=== PATIENT | male | born 1975 | race Hispanic/Latino ===

== ENCOUNTER 2019-08-29 11:13 | Emergency (ER) | payer SELFPAY ==
--- NOTE | 2019-08-29 11:28 | Emergency Department Report ---
Blank Doc - Documentation Documentation: 44-year-old male that presents with left shoulder pain with radiation to hand. Stated has chest pains only when moving the shoulder. Denies any SOB. Patient denies any chest pain currently. This initial assessment/diagnostic orders/clinical plan/treatment(s) is/are subject to change based on patient's health status, clinical progression and re- assessment by fellow clinical providers in the ED. Further treatment and workup at subsequent clinical providers discretion. Patient/guardians urged not to elope from the ED as their condition may be serious if not clinically assessed and managed. Initial orders include: 1- Patient sent to [facility] for further evaluation and treatment 2- xrays 3- EKG-normal sinus rhythm
--- NOTE | 2019-08-29 12:27 | XRay Report ---
LEFT SHOULDER HISTORY: Left shoulder pain. COMPARISON: None. TECHNIQUE: 3 views of the left shoulder were obtained. FINDINGS Bones: No fracture or dislocation. Joint spaces: Maintained. Soft tissues: No significant abnormality. Additional findings: None. IMPRESSION: 1. No significant abnormality. Signer Name: Juancarlos Massey MD Signed: 08/29/2019 12:22 PM Workstation Name: [id number]
[2019-08-29] MEDS ORDERED: CYCLOBENZAPRINE 10 MG TAB PO ONE (13:08)
[2019-08-29] MEDS ORDERED: KETOROLAC 60 MG/2 ML INJ IM ONE (13:08)
[2019-08-29] MEDS ORDERED: dexAMETHasone 20 MG/5 ML VIAL IM ONE (13:08)
--- NOTE | 2019-08-29 13:58 | Cat Scan Report ---
CT cervical spine wo con INDICATION / CLINICAL INFORMATION: 44 years Male; neck pain, left shoulder pain, tingling left arm. TECHNIQUE: Axial CT images of the cervical spine were obtained. Sagittal and coronal reformatted images were pr oduced. All CT scans at this location are performed using CT dose reduction for ALARA by means of aut omated exposure control. COMPARISON: None available. FINDINGS: POST-SURGICAL CHANGES: None. ALIGNMENT: This mild reversal of the cervical lordosis along with slight curvature of the cervical sp ine, convex toward the left at. VERTEBRAE: There are multilevel degenerative endplate changes and osteophytic formation. However, th ere is no clear CT evidence of acute fracture involving the cervical spine. INTRAVERTEBRAL DISCS: The left facet and uncovertebral joint hypertrophy at C3-4 result in mild to mo derate left foraminal narrowing with encroachment on the left lateral recess. The spondylosis at C4-5 effaces the ventral subarachnoid space The spondylosis at C5-6 appears to mildly flatten the ventral cord. There is moderate right and mild left neural foraminal narrowing. The spondylosis at C6-7 is greater on the left with left-sided osteo phyte which effaces the left lateral recess at. There is moderate left neural foraminal narrowing. PARASPINAL SOFT TISSUES: No prevertebral soft tissue fluid collections are identified. ADDITIONAL FINDINGS: There is symmetric smooth the widening of the internal auditory canals which ok ears to be developmental. IMPRESSION: 1. There is no CT evidence of acute fracture involving the cervical spine. 2. There are multilevel degenerative changes as detailed above. Signer Name: Guanakito Arzate MD Signed: 08/29/2019 1:54 PM Workstation Name: [id number]
--- NOTE | 2019-08-29 14:15 | Emergency Department Report ---
ED General Adult HPI - General Chief complaint: Chest Pain Stated complaint: CHEST PAIN Time Seen by Provider: 08/29/19 11:26 Source: patient Mode of arrival: Ambulatory Limitations: No Limitations - History of Present Illness Initial comments: Patient is a 44-year-old male presents emergency room with complaints of left- sided neck pain and left-sided shoulder pain that began a couple days ago. He has associated tingling sensation in the left arm. Patient states that he has previously had a "pinched nerve" in the neck before. Patient denies any c omplete numbness or weakness. PMHx HTN. no allergies to meds. states he did not take his BP medication this morning. Severity scale (0 -10): 10 - Related Data Previous Rx's Medication Instructions Recorded Last Taken Type Codeine Phosphate/Guaifenesin 5 ml PO QHS PRN #60 liquid 07/24/14 Unknown Rx [Codeine-Guaifen 10-100 mg/5 ml] predniSONE [Prednisone] 10 mg PO DAILY #20 tablet 07/24/14 Unknown Rx Cyclobenzaprine [Flexeril] 10 mg PO QHS PRN #14 tablet 08/29/19 Unknown Rx Naproxen [EC-Naprosyn] 500 mg PO BID PRN #20 tablet.dr 08/29/19 Unknown Rx Prednisone [predniSONE 10 mg 10 mg PO .TAPER #1 tab.ds.pk 08/29/19 Unknown Rx (6-Day Pack, 21 Tabs)] Allergies Allergy/AdvReac Type Severity Reaction Status Date / Time No Known Allergies Allergy Unverified 07/24/14 19:46 ED Review of Systems ROS: Stated complaint: CHEST PAIN Other details as noted in HPI Comment: All other systems reviewed and negative ED Past Medical Hx - Past Medical History Previous Medical History?: No - Surgical History Past Surgical History?: No - Social History Smoking Status: Never Smoker Substance Use Type: None - Medications Home Medications: Home Medications Medication Instructions Recorded Confirmed Last Taken Type Codeine Phosphate/Guaifenesin 5 ml PO QHS PRN #60 liquid 07/24/14 Unknown Rx [Codeine-Guaifen 10-100 mg/5 ml] predniSONE [Prednisone] 10 mg PO DAILY #20 tablet 07/24/14 Unknown Rx Cyclobenzaprine [Flexeril] 10 mg PO QHS PRN #14 tablet 08/29/19 Unknown Rx Naproxen [EC-Naprosyn] 500 mg PO BID PRN #20 tablet. 08/29/19 Unknown Rx Prednisone [predniSONE 10 mg 10 mg PO .TAPER #1 tab.ds.pk 08/29/19 Unknown Rx (6-Day Pack, 21 Tabs)] ED Physical Exam - General Limitations: No Limitations General appearance: alert, other (appears to be in mild discomfort) - Head Head exam: Present: atraumatic, normocephalic - Eye Eye exam: Present: normal appearance - ENT ENT exam: Present: mucous membranes moist - Neck Neck exam: Present: normal inspection, tenderness (left sided paraspinal muscular TTP, no mildine C-spine tenderness, no step offs, no deformities), full ROM - Respiratory Respiratory exam: Present: normal lung sounds bilaterally. Absent: respiratory distress, wheezes, rales, rhonchi, stridor, chest wall tenderness, accessory muscle use, decreased breath sounds, prolonged expiratory - Cardiovascular Cardiovascular Exam: Present: regular rate, normal rhythm, normal heart sounds. Absent: systolic murmur, diastolic murmur, rubs, gallop - Extremities Exam Extremities exam: Present: other (left sided trapezius TTP, no bony shoulder TTP, no AC joint tenderness, no deformity, no sulcus sign, clavicles are equal, FROM of the LUE, neurovascularly intact, sensation intact) - Neurological Exam Neurological exam: Present: alert, oriented X3, CN II-XII intact, normal gait. Absent: motor sensory deficit - Psychiatric Psychiatric exam: Present: normal affect, normal mood - Skin Skin exam: Present: warm, dry, intact ED Course Vital Signs 08/29/19 08/29/19 08/29/19 11:15 11:27 14:54 Temperature 98.2 F 98 F 97.7 F Pulse Rate 86 92 H 81 Respiratory 16 20 20 Rate Blood Pressure 144/99 166/116 Blood Pressure 155/108 [Right] O2 Sat by Pulse 94 98 99 Oximetry ED Medical Decision Making - Lab Data Vital Signs 08/29/19 08/29/19 08/29/19 11:15 11:27 14:54 Temperature 98.2 F 98 F 97.7 F Pulse Rate 86 92 H 81 Respiratory 16 20 20 Rate Blood Pressure 144/99 166/116 Blood Pressure 155/108 [Right] O2 Sat by Pulse 94 98 99 Oximetry - EKG Data EKG shows normal: sinus rhythm, axis, intervals, QRS complexes, ST-T waves Rate: normal - Radiology Data Radiology results: report reviewed LEFT SHOULDER HISTORY: Left shoulder pain. COMPARISON: None. TECHNIQUE: 3 views of the left shoulder were obtained. FINDINGS Bones: No fracture or dislocation. Joint spaces: Maintained. Soft tissues: No significant abnormality. Additional findings: None. IMPRESSION: 1. No significant abnormality. Signer Name: Juancarlos Villegas MD Signed: 08/29/2019 12:22 PM Workstation Name: [id number] Transcribed By: REF Dictated By: JUANCARLOS VILLEGAS MD Electronically Authenticated By: JUANCARLOS VILLEGAS MD Signed Date/Time: 08/29/19 122 DD/ 1221 TD/TT: CT cervical spine wo con INDICATION / CLINICAL INFORMATION: 44 years Male; neck pain, left shoulder pain, tingling left arm. TECHNIQUE: Axial CT images of the cervical spine were obtained. Sagittal and coronal reformatted images were produced. All CT scans at this location are performed using CT dose reduction for ALARA by means of automated exposure control. COMPARISON: None available. FINDINGS: POST-SURGICAL CHANGES: None. ALIGNMENT: This mild reversal of the cervical lordosis along with slight curvature of the cervical spine, convex toward the left at. VERTEBRAE: There are multilevel degenerative endplate changes and osteophytic formation. However, there is no clear CT evidence of acute fracture involving the cervical spine. INTRAVERTEBRAL DISCS: The left facet and uncovertebral joint hypertrophy at C3-4 result in mild to moderate left foraminal narrowing with encroachment on the left lateral recess. The spondylosis at C4-5 effaces the ventral subarachnoid space The spondylosis at C5-6 appears to mildly flatten the ventral cord. There is moderate right and mild left neural foraminal narrowing. The spondylosis at C6-7 is greater on the left with left-sided osteophyte which effaces the left lateral recess at. There is moderate left neural foraminal narrowing. PARASPINAL SOFT TISSUES: No prevertebral soft tissue fluid collections are identified. ADDITIONAL FINDINGS: There is symmetric smooth the widening of the internal auditory canals which appears to be developmental. IMPRESSION: 1. There is no CT evidence of acute fracture involving the cervical spine. 2. There are multilevel degenerative changes as detailed above. Signer Name: Guanakito Arzate MD Signed: 08/29/2019 1:54 PM Workstation Name: [id number] Transcribed By: MR Dictated By: Guanakito Arzate MD Electronically Authenticated By: Guanakito Arzate MD Signed Date/Time: 08/29/19 1354 DD/ 1347 TD/TT: - Medical Decision Making Patient is a 44-year-old male presents emergency room with complaints of left-sided neck pain and left-sided shoulder pain that began a couple days ago. He has associated tingling sensation in the left arm. Patient states that he has previously had a "pinched nerve" in the neck before. Patient denies any complete numbness or weakness. PMHx HTN. no allergies to meds. states he did not take his BP medication this morning, advised pt to please take his BP med as prescribed by his PCP and to follow up with his PCP. on exam: left sided paraspinal muscular TTP, no mildine C-spine tenderness, no step offs, no deformities, left sided trapezius TTP, no bony shoulder TTP, no AC joint tenderness, no deformity, no sulcus sign, clavicles are equal, FROM of the LUE, neurovascularly intact, sensation intact, no neuro deficits. XR shoulder: 1. No significant abnormality. CT cervical spine: 1. There is no CT evidence of acute fracture involving the cervical spine.2. There are multilevel degenerative changes as detailed above. Patient given Flexeril, Toradol injection, steroid injection as he did not drive to the emergency department. His symptoms significantly improved and he was resting comfortably on exam bed. symptoms and examination consistent with a cervical radiculopathy. Patient given prescription for naproxen, Flexeril, prednisone. Advised patient Please take medication as prescribed. Do not drive or operate machinery while taking muscle relaxer. May use ice pack, heating pad, rest, epsom salt bath. Follow-up with an orthopedic doctor in the next 2-3 days. Return to the emergency room for any new or worsening symptoms. - Differential Diagnosis DDD, cervical radiulopathy, strain, sprain, spondylolysis, spondylolisthesi Critical care attestation.: If time is entered above; I have spent that time in minutes in the direct care of this critically ill patient, excluding procedure time. ED Disposition Clinical Impression: Cervical radiculopathy, Spondylosis DDD (degenerative disc disease) Qualifiers: Spinal region: mid-cervical Mid-cervical spinal level: C5-C6 Qualified Code(s): M50.322 - Other cervical disc degeneration at C5-C6 level Disposition: DC-01 TO HOME OR SELFCARE Is pt being admited?: No Does the pt Need Aspirin: No Condition: Stable Instructions: Cervical Radiculopathy (ED), Degenerative Disc Disease (ED) Additional Instructions: Please take medication as prescribed. Do not drive or operate machinery while taking muscle relaxer. May use ice pack, heating pad, rest, epsom salt bath. Follow-up with an orthopedic doctor in the next 2-3 days. Return to the emergency room for any new or worsening symptoms. Prescriptions: Cyclobenzaprine [Flexeril] 10 mg PO QHS PRN #14 tablet PRN Reason: Muscle Spasm Naproxen [EC-Naprosyn] 500 mg PO BID PRN #20 tablet.dr PRN Reason: pain Prednisone [predniSONE 10 mg (6-Day Pack, 21 Tabs)] 10 mg PO .TAPER #1 tab.ds.pk Referrals: [facility] [Provider Group] - 2-3 Days NELSON MYERS MD [Staff Physician] - 2-3 Days Forms: Work/School Release Form(ED) Time of Disposition: 14:15 Print Language: TAMAZIGHT
[2019-08-29 14:55] VITALS: BP 155/108
== END 2019-08-29 15:17 | disposition home or self-care (01) ==
LOC: ED 11:13
DX: M54.12 Radiculopathy, cervical region (principal); M50.31 Other cervical disc degeneration, high cervical region; M47.9 Spondylosis, unspecified; M25.512 Pain in left shoulder
CPT/HCPCS: 72125; 73030; 93005; 93010; 96372; 99284; J1100; J1885

== ENCOUNTER 2020-07-29 05:31 | Emergency (ER) | payer BC ==
[2020-07-29 06:16] LABS: Basophils # (Auto) 0.1 K/mm3 (0.0-0.1); Basophils % (Auto) 1.1 % (0.0-1.8); Eosinophils # (Auto) 0.2 K/mm3 (0.0-0.4); Eosinophils % (Auto) 3.5 % (0.0-4.3); Hematocrit 45.9 % (35.5-45.6); Hemoglobin 15.2 gm/dl (11.8-15.2); Lymphocytes # (Auto) 1.2 K/mm3 (1.2-5.4); Lymphocytes % (Auto) 22.4 % (13.4-35.0); Mean Corpuscular HGB Conc 33 % (32-34); Mean Corpuscular Volume 86 fl (84-94); Monocytes # (Auto) 0.5 K/mm3 (0.0-0.8); Monocytes % (Auto) 8.6 % (0.0-7.3); Platelet Count 355 K/mm3 (140-440); Red Blood Count 5.31 M/mm3 (3.65-5.03); Red Cell Distribution Width 14.3 % (13.2-15.2)
--- NOTE | 2020-07-29 06:32 | XRay Report ---
CHEST 1 VIEW INDICATION / CLINICAL INFORMATION: Chest Pain. COMPARISON: None FINDINGS: SUPPORT DEVICES: None. HEART / MEDIASTINUM: No significant abnormality. LUNGS / PLEURA: No significant pulmonary or pleural abnormality. No pneumothorax. ADDITIONAL FINDINGS: No significant additional findings. IMPRESSION: 1. No acute findings. Signer Name: Rosalba Parker MD Signed: 07/29/2020 6:27 AM Workstation Name: [id number]
[2020-07-29 06:38] LABS: BUN/Creatinine Ratio 17; Blood Urea Nitrogen 15 mg/dL (9-20); Calcium 9.6 mg/dL (8.4-10.2); Hemolysis Index 30
--- NOTE | 2020-07-29 08:51 | Emergency Department Report ---
ED Chest Pain HPI - General Chief Complaint: Chest Pain Stated Complaint: CHEST PAIN/TROUBLE SWALLOWING Time Seen by Provider: 07/29/20 08:50 Source: patient Mode of arrival: Ambulatory Limitations: No Limitations - History of Present Illness Initial Comments: 45-year-old male presents to the emergency room stating that this morning he had trouble swallowing in complaining of epigastric pain. Patient states he had not changed his diet has not had any alcohol beverage in a month. He admits to some nausea denies any fever no chills. Does have a history of GERD but has not needed to take his medications. Patient states that this time he has no discomfort he has been able to drink liquids but has not tried solids. Patient denies any fever chills. Review of patient's chart shows that he has a history of hypertension. MD Complaint: chest pain -: This morning Onset: after eating Pain Location: epigastric Pain Radiation: none Severity scale (0 -10): 0 Quality: other (Discomfort) Consistency: intermittent Improves With: nothing Worsens With: eating re: nausea. denies: vomting, diaphoresis, dyspnea, sense of impending doom Other Symptoms: denies: cough, fever, syncope, rash, acid taste in mouth, leg swelling, palpitations Treatments Prior to Arrival: none - Related Data On Oral Contraceptives: No Previous Rx's Medication Instructions Recorded Last Taken Type Codeine Phosphate/Guaifenesin 5 ml PO QHS PRN #60 liquid 07/24/14 Unknown Rx [Codeine-Guaifen 10-100 mg/5 ml] predniSONE [Prednisone] 10 mg PO DAILY #20 tablet 07/24/14 Unknown Rx Cyclobenzaprine [Flexeril] 10 mg PO QHS PRN #14 tablet 08/29/19 Unknown Rx Naproxen [EC-Naprosyn] 500 mg PO BID PRN #20 tablet. 08/29/19 Unknown Rx Prednisone [predniSONE 10 mg 10 mg PO .TAPER #1 tab.ds.pk 08/29/19 Unknown Rx (6-Day Pack, 21 Tabs)] Famotidine [Pepcid] 20 mg PO BID #14 tablet 07/29/20 Unknown Rx Sucralfate [Carafate] 1 gm PO ACHS #15 tablet 07/29/20 Unknown Rx Allergies Allergy/AdvReac Type Severity Reaction Status Date / Time No Known Allergies Allergy Unverified 07/24/14 19:46 Heart Score - HEART Score History: Slightly suspicious EKG: Normal Age: 45-65 Risk factors: No known risk factors Troponin: 1-3x normal limit HEART Score: 2 ED Review of Systems ROS: Stated complaint: CHEST PAIN/TROUBLE SWALLOWING Other details as noted in HPI Comment: All other systems reviewed and negative ED Past Medical Hx - Past Medical History Hx Hypertension: Yes - Surgical History Past Surgical History?: No - Social History Smoking Status: Current Every Day Smoker Substance Use Type: None - Medications Home Medications: Home Medications Medication Instructions Recorded Confirmed Last Taken Type Codeine Phosphate/Guaifenesin 5 ml PO QHS PRN #60 liquid 07/24/14 Unknown Rx [Codeine-Guaifen 10-100 mg/5 ml] predniSONE [Prednisone] 10 mg PO DAILY #20 tablet 07/24/14 Unknown Rx Cyclobenzaprine [Flexeril] 10 mg PO QHS PRN #14 tablet 08/29/19 Unknown Rx Naproxen [EC-Naprosyn] 500 mg PO BID PRN #20 tablet.dr 08/29/19 Unknown Rx Prednisone [predniSONE 10 mg 10 mg PO .TAPER #1 tab.ds.pk 08/29/19 Unknown Rx (6-Day Pack, 21 Tabs)] Famotidine [Pepcid] 20 mg PO BID #14 tablet 07/29/20 Unknown Rx Sucralfate [Carafate] 1 gm PO ACHS #15 tablet 07/29/20 Unknown Rx ED Physical Exam - General Limitations: No Limitations General appearance: alert, in no apparent distress - Head Head exam: Present: atraumatic, normocephalic - Eye Eye exam: Present: normal appearance - ENT ENT exam: Present: mucous membranes moist - Neck Neck exam: Present: normal inspection - Respiratory Respiratory exam: Present: normal lung sounds bilaterally. Absent: respiratory distress - Cardiovascular Cardiovascular Exam: Present: regular rate, normal rhythm. Absent: systolic murmur, diastolic murmur, rubs, gallop - GI/Abdominal GI/Abdominal exam: Present: soft, normal bowel sounds - Rectal Rectal exam: Present: deferred - Extremities Exam Extremities exam: Present: normal inspection - Back Exam Back exam: Present: normal inspection - Neurological Exam Neurological exam: Present: alert, oriented X3 - Psychiatric Psychiatric exam: Present: normal affect, normal mood - Skin Skin exam: Present: warm, dry, intact, normal color. Absent: rash ED Course Vital Signs 07/29/20 06:03 Temperature 98.1 F Pulse Rate 90 Respiratory 18 Rate Blood Pressure 133/90 O2 Sat by Pulse 97 Oximetry GOMEZ score - Gomez Score Age > 65: (0) No Aspirin use within the Past 7 Days: (0) No 3 or more CAD Risk Factors: (0) No 2 or more Angina events in past 24 hrs: (0) No Known CAD with more than 50% Stenosis: (0) No Elevated Cardiac Markers: (0) No ST Deviation Greater than 0.5mm: (0) No GOMEZ Score: 0 ED Medical Decision Making - Lab Data Result diagrams: 07/29/20 05:54 07/29/20 05:54 - EKG Data EKG shows normal: sinus rhythm, axis, intervals, QRS complexes, ST-T waves Rate: normal - Radiology Data Radiology results: report reviewed Referring Physician:ED DOCPatient Name:NESTOR JIMENEZPatient ID:[id number] of :[id number]:MaleAccession:[id number] Date:[id number] Status:Finalized Findings [facility] [address] [place] [address] XRay Report Signed Patient: NESTOR JIMENEZ MR#: [id number] : 1975 Acct:[id number] Age/Sex: 45 / M ADM Date: 07/29/20 Loc: ED Attending Dr: Ordering Physician: NATHANIEL NGUYEN MD Date of Service: 07/29/20 Procedure(s): XR chest 1V ap Accession Number(s): [id number] cc: ED MD PATRICK Fluoro Time In Minutes: CHEST 1 VIEW INDICATION / CLINICAL INFORMATION: Chest Pain. COMPARISON: None FINDINGS: SUPPORT DEVICES: None. HEART / MEDIASTINUM: No significant abnormality. LUNGS / PLEURA: No significant pulmonary or pleural abnormality. No pneumothorax. ADDITIONAL FINDINGS: No significant additional findings. IMPRESSION: 1. No acute findings. Signer Name: Rosalba Parker MD Signed: 07/29/2020 6:27 AM Workstation Name: [id number] Transcribed By: HRC Dictated By: Rosalba Parker MD Electronically Authenticated By: Rosalba Parker MD Signed Date/Time: 07/29/20626 DD/ 5 TD/TT: - Medical Decision Making 45-year-old male presents to the emergency room stating that this morning he had trouble swallowing in complaining of epigastric pain. Patient states he had not changed his diet has not had any alcohol beverage in a month. He admits to some nausea denies any fever no chills. Does have a history of GERD but has not needed to take his medications. Patient states that this time he has no discomfort he has been able to drink liquids but has not tried solids. Patient denies any fever chills. Review of patient's chart shows that he has a history of hypertension. Cardiac protocol was initiated in triage. Labs are stable on actionable. Chest x-ray is within normal limits EKG is normal patient has no risk factors for cardiac event. Patient was given Pepcid 20 mg p.o. patient will be discharged home to follow-up with a assistant refinery operator as well as a facepiece line supervisor. Critical care attestation.: If time is entered above; I have spent that time in minutes in the direct care of this critically ill patient, excluding procedure time. ED Disposition Clinical Impression: Atypical chest pain, Epigastric pain Disposition: - TO HOME OR SELFCARE Is pt being admited?: No Does the pt Need Aspirin: No Condition: Stable Instructions: Chest Pain (ED) Additional Instructions: X-rays are negative EKG is within normal limits labs are all stable. I would like for you to take the Pepcid and the Carafate for a week. Follow-up with cardiology as well as a assistant refinery operator I have listed their information below for your convenience. Prescriptions: Sucralfate [Carafate] 1 gm PO ACHS #15 tablet Famotidine [Pepcid] 20 mg PO BID #14 tablet Referrals: PRIMARY [facility] [Primary Care Provider] - 3-5 Days JESUS SANDOVAL MD [Staff Physician] - 3-5 Days [facility] [Provider Group] - 3-5 Days Forms: Work/School Release Form(ED)
[2020-07-29] MEDS ORDERED: ONDANSETRON 4 MG ODT TAB PO ONE (09:19)
[2020-07-29] MEDS ORDERED: FAMOTIDINE 20 MG TAB PO ONE (09:19)
[2020-07-29 11:10] VITALS: BP 151/89
== END 2020-07-29 11:10 | disposition home or self-care (01) ==
LOC: ED 05:31
DX: R07.89 Other chest pain (principal); R10.13 Epigastric pain; R11.0 Nausea; I10 Essential (primary) hypertension; F17.200 Nicotine dependence, unspecified, uncomplicated; Z79.899 Other long term (current) drug therapy
CPT/HCPCS: 36415; 71045; 80048; 84484; 85025; 93005; Q0162

== ENCOUNTER 2021-06-28 10:49 | Emergency (ER) | payer BC ==
[2021-06-28] MEDS ORDERED: MORPHINE 4 MG/1 ML INJ IV ONE ×2 (11:31→16:36)
[2021-06-28] MEDS ORDERED: PANTOPRAZOLE 40 MG INJ IV ONE (11:31)
[2021-06-28] MEDS ORDERED: LACTATED RINGERS 1,000 ML IV ONE (11:31)
[2021-06-28] MEDS ORDERED: ONDANSETRON 4 MG/2 ML INJ IV ONE ×2 (11:31→16:36)
--- NOTE | 2021-06-28 11:38 | Emergency Department Report ---
ED General Adult HPI - General Chief complaint: Abdominal Pain Stated complaint: Ate a hot dog, and now my stomach is bothering me PUI?: No Time Seen by Provider: 06/28/21 11:10 Source: patient, RN notes reviewed, old records reviewed Mode of arrival: Ambulatory Limitations: No Limitations - History of Present Illness Initial comments: The patient is a 46-year-old gentleman. The patient presents to the ER today with a complaint of epigastric and upper abdominal pain, associate with nausea and vomiting, after eating a hot dog. The patient states that prior to eating the hot dog, he was in his usual state of health, and had no issues or complaints. After eating hot dog, he states that he vomited, and some fluid and blood came out of his nose, which is now resolved. The patient denies travel, surgery, immobilization, DVT and pulmonary embolism risk factors. He denies diaphoresis, leg pain, leg swelling, personal/family history of DVT He still complains of epigastric and upper abdominal pain. The pain is sharp a nd throbbing. It increases with palpation. It decreases with rest and position. His symptoms are improved in the emergency room, with morphine and Zofran -: Sudden Location: abdomen Radiation: non-radiation Severity scale (0 -10): 7 Consistency: constant Improves with: medication Worsens with: eating - Related Data Previous Rx's Medication Instructions Recorded Last Taken Type Codeine Phosphate/Guaifenesin 5 ml PO QHS PRN #60 liquid 07/24/14 Unknown Rx [Codeine-Guaifen 10-100 mg/5 ml] predniSONE [Prednisone] 10 mg PO DAILY #20 tablet 07/24/14 Unknown Rx Cyclobenzaprine [Flexeril] 10 mg PO QHS PRN #14 tablet 08/29/19 Unknown Rx Naproxen [EC-Naprosyn] 500 mg PO BID PRN #20 tablet.dr 08/29/19 Unknown Rx Prednisone [predniSONE 10 mg 10 mg PO .TAPER #1 tab.ds.pk 08/29/19 Unknown Rx (6-Day Pack, 21 Tabs)] Famotidine [Pepcid] 20 mg PO BID #14 tablet 07/29/20 Unknown Rx Sucralfate [Carafate] 1 gm PO ACHS #15 tablet 07/29/20 Unknown Rx Allergies Allergy/AdvReac Type Severity Reaction Status Date / Time No Known Allergies Allergy Unverified 07/24/14 19:46 ED Review of Systems ROS: Stated complaint: NOSE BLEED,CHEST PAIN Other details as noted in HPI Constitutional: denies: fever Eyes: denies: eye discharge ENT: epistaxis (Nasal bleeding, now resolved) Respiratory: denies: cough Cardiovascular: chest pain Gastrointestinal: abdominal pain, nausea, vomiting. denies: hematemesis, melena, hematochezia Genitourinary: denies: dysuria Musculoskeletal: denies: back pain Neurological: denies: weakness Psychiatric: anxiety Hematological/Lymphatic: denies: easy bleeding ED Past Medical Hx - Past Medical History Previous Medical History?: Yes Hx Hypertension: Yes - Surgical History Past Surgical History?: Yes Additional Surgical History: vocal chords as child - Social History Smoking Status: Current Every Day Smoker Substance Use Type: None - Medications Home Medications: Home Medications Medication Instructions Recorded Confirmed Last Taken Type Codeine Phosphate/Guaifenesin 5 ml PO QHS PRN #60 liquid 07/24/14 Unknown Rx [Codeine-Guaifen 10-100 mg/5 ml] predniSONE [Prednisone] 10 mg PO DAILY #20 tablet 07/24/14 Unknown Rx Cyclobenzaprine [Flexeril] 10 mg PO QHS PRN #14 tablet 08/29/19 Unknown Rx Naproxen [EC-Naprosyn] 500 mg PO BID PRN #20 tablet.dr 08/29/19 Unknown Rx Prednisone [predniSONE 10 mg 10 mg PO .TAPER #1 tab.ds.pk 08/29/19 Unknown Rx (6-Day Pack, 21 Tabs)] Famotidine [Pepcid] 20 mg PO BID #14 tablet 07/29/20 Unknown Rx Sucralfate [Carafate] 1 gm PO ACHS #15 tablet 07/29/20 Unknown Rx ED Physical Exam - General Limitations: No Limitations General appearance: alert, anxious, in distress - Head Head exam: Present: atraumatic, normocephalic - Eye Eye exam: Present: normal appearance, EOMI. Absent: nystagmus - ENT ENT exam: Present: normal exam, normal orophraynx, mucous membranes moist, normal external ear exam - Neck Neck exam: Present: normal inspection, full ROM. Absent: tenderness, meningismus - Respiratory Respiratory exam: Present: normal lung sounds bilaterally. Absent: respiratory distress, wheezes, rales, rhonchi, stridor, decreased breath sounds - Cardiovascular Cardiovascular Exam: Present: normal rhythm, tachycardia, normal heart sounds. Absent: bradycardia, irregular rhythm, systolic murmur, diastolic murmur, rubs, gallop - GI/Abdominal GI/Abdominal exam: Present: soft, tenderness, other (There is right upper quadrant tenderness. There is a negative Simmons sign. There is epigastric tenderness). Absent: distended, guarding, rebound, rigid, pulsatile mass - Rectal Rectal exam: Present: deferred - Extremities Exam Extremities exam: Present: normal inspection, full ROM, other (2+ pulses noted in the bilateral upper and lower extremities. There is no palpable cord. negative Homans sign. Muscular compartments are soft. The pelvis is stable.). Absent: pedal edema, calf tenderness - Back Exam Back exam: Present: normal inspection, full ROM. Absent: tenderness, CVA tenderness (R), CVA tenderness (L), paraspinal tenderness, vertebral tenderness - Neurological Exam Neurological exam: Present: alert, oriented X3, normal gait, other (No facial droop. Tongue midline. Extraocular movements intact bilaterally. Facial sensation intact to light touch in V1, V2, V3 distribution bilaterally. 5 and a 5 strength in 4 extremities. Sensation intact to light touch in 4 extremities.). Absent: motor sensory deficit - Psychiatric Psychiatric exam: Present: anxious - Skin Skin exam: Present: warm, dry, intact, normal color. Absent: rash ED Course Vital Signs 06/28/21 11:08 Temperature 98.4 F Pulse Rate 102 H Respiratory 18 Rate Blood Pressure 150/104 [Right] O2 Sat by Pulse 97 Oximetry - Reevaluation(s) Reevaluation #1: 06/28/21 14:07 Differential diagnosis, including but not limited to: Food impaction/foreign body, GERD, gastritis, hiatal hernia, costochondritis, pneumonia, pancreatitis, cholelithiasis, cholecystitis Assessment and plan: 46-year-old gentleman, who was in his usual state of health, and then ate a hotdog, and then immediately developed epigastric pain, nausea and vomiting with upper abdominal pain and tenderness. He is tachycardic, likely secondary to pain. He denies travel, surgery, immobilization, DVT and pulmonary embolism risk factors. He is low risk by Wells criteria for pulmonary embolism. Laboratory studies unremarkable with exception of nonspecific transaminitis. Right upper quadrant ultrasound obtained, demonstrates fatty liver, without surgical pathology. Fluoroscopic barium swallow obtained, demonstrates esophageal obstruction. Contacted gastroenterology on-call, Dr. Dowd. Have requested emergent GI consultation. Discussed the patient's history, physical, laboratory studies and imaging studies. He will come by to evaluate the patient, and indicates he will make arrangements for endoscopic. I discussed this with the patient. He is agreeable to this plan of care. Patient low risk for major adverse cardiac event as per heart score. Reevaluation #2: 06/28/21 15:05 Feeling improved. Tachycardia resolved. Resting comfortably in stretcher. Awaiting GI consultation. 06/28/21 16:35 Received call back from Dr. Dowd. He advises that at this point in time, we do not have anesthesia backup for endoscopic evaluation. He states that he is currently clinically working at [facility], and advises transfer to [facility] for endoscopic evaluation, where anesthetic services are available. He reports that he will be the accepting physician for this patient. I went back and discussed this with the patient and significant other with the patient's permission. Discussed risks, benefits and alternatives. Patient provides consent for transfer. ED Medical Decision Making - Lab Data Result diagrams: 06/28/21 11:53 06/28/21 11:53 Vital Signs 06/28/21 11:08 Temperature 98.4 F Pulse Rate 102 H Respiratory 18 Rate Blood Pressure 150/104 [Right] O2 Sat by Pulse 97 Oximetry Lab Results 06/28/21 06/28/21 06/28/21 Range/Units 11:53 11:53 11:53 WBC 9.7 (4.5-11.0) K/mm3 RBC 5.58 H (3.65-5.03) M/mm3 Hgb 16.0 H (11.8-15.2) gm/dl Hct 47.8 H (35.5-45.6) % MCV 86 (84-94) fl MCH 29 (28-32) pg MCHC 33 (32-34) % RDW 13.3 (13.2-15.2) % Plt Count 343 (140-440) K/mm3 Lymph % (Auto) 20.5 (13.4-35.0) % Dewitt % (Auto) 8.5 H (0.0-7.3) % Eos % (Auto) 3.1 (0.0-4.3) % Baso % (Auto) 1.3 (0.0-1.8) % Lymph # (Auto) 2.0 (1.2-5.4) K/mm3 Dewitt # (Auto) 0.8 (0.0-0.8) K/mm3 Eos # (Auto) 0.3 (0.0-0.4) K/mm3 Baso # (Auto) 0.1 (0.0-0.1) K/mm3 Seg Neutrophils % 66.6 (40.0-70.0) % Seg Neutrophils # 6.4 (1.8-7.7) K/mm3 PT 13.0 (12.2-14.9) Sec. INR 0.88 (0.87-1.13) Sodium 139 (137-145) mmol/L Potassium 4.2 (3.6-5.0) mmol/L Chloride 101.9 (98-107) mmol/L Carbon Dioxide 24 (22-30) mmol/L Anion Gap 17 mmol/L BUN 15 (9-20) mg/dL Creatinine 0.9 (0.8-1.3) mg/dL Estimated GFR > 60 ml/min BUN/Creatinine Ratio 17 % Glucose 131 H (75-100) mg/dL Calcium 9.1 (8.4-10.2) mg/dL Magnesium 2.30 (1.7-2.3) mg/dL Total Bilirubin 0.30 (0.1-1.2) mg/dL AST 42 H (5-40) units/L ALT 102 H (7-56) units/L Alkaline Phosphatase 104 (35-129) units/L Total Creatine Kinase 330 H (55-170) units/L Troponin T < 0.010 (0.00-0.029) ng/mL Total Protein 8.2 (6.3-8.2) g/dL Albumin 4.5 (3.9-5) g/dL Albumin/Globulin Ratio 1.2 % Lipase 26 (13-60) units/L - EKG Data -: EKG Interpreted by Or EKG shows normal: sinus rhythm Rate: tachycardia - EKG Data When compared to previous EKG there are: previous EKG unavailable 06/28/21 13:47 The EKG is interpreted at 11: 00 Sinus rhythm, tachycardia, rate 100 bpm. Normal axis, normal intervals, high left ventricular voltage. Q waves noted in lead III. Abnormal EKG. Not a STEMI. - Radiology Data Radiology results: pending, report reviewed, image reviewed Barium swallow INDICATION: Dysphasia FINDINGS: Patient was given thin and thick barium. There is complete obstruction of the distal esophagus just proximal to the GE junction with fluid level identified. Mild tapering is seen. No significant contrast extending into the stomach. Patient vomited after swallows. Total fluoroscopy time 0.8 minutes. IMPRESSION: Complete obstruction of the distal esophagus just proximal to the GE junction. Differential considerations would include esophageal carcinoma, stricture, inflammatory/infec tious etiology. Further workup and evaluation with endoscopy recommended. CHEST 2 VIEWS INDICATION / CLINICAL INFORMATION: dysphagia. COMPARISON: None available. FINDINGS: SUPPORT DEVICES: None. HEART / MEDIASTINUM: No significant abnormality. LUNGS / PLEURA: No significant pulmonary or pleural abnormality. No pneumothorax. ADDITIONAL FINDINGS: No significant additional findings. IMPRESSION: 1. No acute findings. Signer Name: Chema Minor MD Signed: 06/28/2021 11:24 AM Workstation Name: [id number] CHEST 2 VIEWS INDICATION / CLINICAL INFORMATION: acute cp n/v. COMPARISON: 07/29/2020 FINDINGS: SUPPORT DEVICES: None. HEART / MEDIASTINUM: No significant abnormality. LUNGS / PLEURA: No significant pulmonary or pleural abnormality. No pneumothorax. ADDITIONAL FINDINGS: No significant additional findings. IMPRESSION: 1. No acute findings. Signer Name: Sal Tyson MD Signed: 06/28/2021 11:23 AM Workstation Name: [id number] Critical care attestation.: If time is entered above; I have spent that time in minutes in the direct care of this critically ill patient, excluding procedure time. ED Disposition Clinical Impression: Food impaction of esophagus, Epigastric abdominal pain, Right upper quadrant abdominal pain, Transaminitis, Fatty liver Disposition: 02 [facility]M [facility] Is pt being admited?: No Does the pt Need Aspirin: No Condition: Good Referrals: PRIMARY CARE, [Primary Care Provider] - 3-5 Days Heart Score - HEART Score History: Slightly suspicious EKG: Non-specific Age: 45-65 Risk factors: 1-2 risk factors Troponin: < normal limit HEART Score: 3 - EKG Read Time Time EKG Completed: 11:00 EKG Read Time: 11:00 - Critical Actions Critical Actions: 0-3 pts:0.9-1.7%risk of adverse cardiac event.Candidate for discharge
[2021-06-28 11:59] LABS: Basophils # (Auto) 0.1 K/mm3 (0.0-0.1); Basophils % (Auto) 1.3 % (0.0-1.8); Eosinophils # (Auto) 0.3 K/mm3 (0.0-0.4); Eosinophils % (Auto) 3.1 % (0.0-4.3); Hematocrit 47.8 % (35.5-45.6); Lymphocytes % (Auto) 20.5 % (13.4-35.0); Mean Corpuscular HGB Conc 33 % (32-34); Mean Corpuscular Volume 86 fl (84-94); Monocytes # (Auto) 0.8 K/mm3 (0.0-0.8); Monocytes % (Auto) 8.5 % (0.0-7.3); Platelet Count 343 K/mm3 (140-440); Red Blood Count 5.58 M/mm3 (3.65-5.03); Red Cell Distribution Width 13.3 % (13.2-15.2)
[2021-06-28 12:25] LABS: Alanine Aminotransferase 102 units/L (7-56); Albumin 4.5 g/dL (3.9-5); BUN/Creatinine Ratio 17; Blood Urea Nitrogen 15 mg/dL (9-20); Calcium 9.1 mg/dL (8.4-10.2); Hemolysis Index 9
--- NOTE | 2021-06-28 12:28 | XRay Report ---
CHEST 2 VIEWS INDICATION / CLINICAL INFORMATION: acute cp n/v. COMPARISON: 07/29/2020 FINDINGS: SUPPORT DEVICES: None. HEART / MEDIASTINUM: No significant abnormality. LUNGS / PLEURA: No significant pulmonary or pleural abnormality. No pneumothorax. ADDITIONAL FINDINGS: No significant additional findings. IMPRESSION: 1. No acute findings. Signer Name: Sal Tyson MD Signed: 06/28/2021 12:23 PM Workstation Name: [id number]
--- NOTE | 2021-06-28 12:29 | Fluoroscopy Report ---
Barium swallow INDICATION: Dysphasia FINDINGS: Patient was given thin and thick barium. There is complete obstruction of the distal esopha rene just proximal to the GE junction with fluid level identified. Mild tapering is seen. No significa nt contrast extending into the stomach. Patient vomited after swallows. Total fluoroscopy time 0.8 mi nutes. IMPRESSION: Complete obstruction of the distal esophagus just proximal to the GE junction. Differential considera tions would include esophageal carcinoma, stricture, inflammatory/infectious etiology. Further workup and evaluation with endoscopy recommended. CHEST 2 VIEWS INDICATION / CLINICAL INFORMATION: dysphagia. COMPARISON: None available. FINDINGS: SUPPORT DEVICES: None. HEART / MEDIASTINUM: No significant abnormality. LUNGS / PLEURA: No significant pulmonary or pleural abnormality. No pneumothorax. ADDITIONAL FINDINGS: No significant additional findings. IMPRESSION: 1. No acute findings. Signer Name: Chema Minor MD Signed: 06/28/2021 12:24 PM Workstation Name: [id number]
[2021-06-28 12:31] LABS: INR 0.88 (0.87-1.13)
--- NOTE | 2021-06-28 13:34 | Ultrasound Report ---
ULTRASOUND ABDOMEN, LIMITED (RIGHT UPPER QUADRANT) INDICATION: ruq pain. COMPARISON: None available. FINDINGS: Pancreas: Visualized portion shows no significant abnormality. Liver: Liver is increased in echogenicity liver measures approximately 18 cm in length. Gallbladder: There is some mild echogenic material within the gallbladder which appears to represent sludge. No definite stones were imaged. No shadowing structures are seen. Bile ducts: Normal. Common Bile Duct measures 2 mm. Free fluid: None. Additional Findings: None. IMPRESSION: 1. There is hepatomegaly with increased echogenicity in the liver likely representing fatty infiltrat ion. 2. There is a small amount of echogenic material in the gallbladder which does not shadow. This is ch aracteristic of small amount of sludge. Signer Name: Sal Tyson MD Signed: 06/28/2021 1:30 PM Workstation Name: [id number]
[2021-06-28 17:45] VITALS: BP 139/97
--- NOTE | 2021-06-30 11:35 | Electrocardiograph Report ---
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
== END 2021-06-28 17:50 | disposition short-term general hospital (02) ==
LOC: ED 10:49
DX: T18.128A Food in esophagus causing other injury, initial encounter (principal); R10.13 Epigastric pain; K76.0 Fatty (change of) liver, not elsewhere classified; R74.8 Abnormal levels of other serum enzymes; X58.XXXA Exposure to other specified factors, initial encounter; Y93.89 Activity, other specified; Y92.89 Other specified places as the place of occurrence of the external cause; Y99.8 Other external cause status
CPT/HCPCS: 36415; 71046; 74220; 76705; 80053; 82550; 83690; 83735; 84484; 85025; 85610; 93005; 96361; 96374; 96375; 96376; 99285; C9113; J2270; J2405; J7120